=== PATIENT | male | born 1995 | race Caucasian/White ===

== ENCOUNTER 2024-08-11 12:43 | Outpatient (CLI) | payer BC, SELFPAY ==
--- NOTE | 2024-08-11 13:00 | CT_ITS ---
FINAL REPORT TECHNIQUE: Thin section axial images are obtained through the abdomen and pelvis after intravenous contrast. Reconstruction images were obtained from the axial data. Exam was performed using dose reduction techniques. CLINICAL HISTORY: kidney cancer history, checkup COMPARISON: No prior exams submitted for comparison. FINDINGS: LUNG BASES: Lung bases are clear. Heart size is normal. LIVER: Homogeneous. No focal lesion. GALLBLADDER/BILIARY SYSTEM: Gallbladder is present. Questionable small gallstones. No biliary dilatation. SPLEEN: Unremarkable. PANCREAS: Unremarkable. ADRENALS: Unremarkable. KIDNEYS/URETERS/BLADDER: Left kidney has likely been removed. Abnormal attenuation is seen in the left renal fossa which is likely postoperative. Right kidney is unremarkable. Unremarkable urinary bladder. GI TRACT: No small bowel obstruction or dilatation. Normal appendix. No acute colon abnormality. PELVIC ORGANS: Unremarkable for age. LYMPH NODES/RETROPERITONEUM/MESENTERY: Left periaortic lymph node measuring 13 mm seen on axial image 48. No additional lymphadenopathy is seen. No abdominal aortic aneurysm. ABDOMINAL WALL: The abdominal wall is intact. FREE FLUID: No ascites. BONES: No acute osseous abnormality. IMPRESSION: 13 mm left periaortic lymph node which could be reactive. Recommend comparison with prior imaging. Otherwise, no acute abnormality. Reviewed, Interpreted and Dictated by Mercedez Ross MD Transcribed by Nicole Wiggins Authenticated and . [facility] [place]
[2024-08-11 13:24] LABS: Blood Urea Nitrogen 19 mg/dl (9-20); Estimated Glomerular Filt Rate 65 ml/min (>60); GFR (African American) 78 ML/MIN (>60)
[2024-08-11] MEDS: IOPAMIDOL-370 (76%);100ML BOTTLE 75 ML IV (13:40)
[2024-08-11] MEDS: SODIUM CHLORIDE 0.9% 10ML SYR (RAD ONLY) 10 ML IV (13:40)
== END 2024-08-11 23:59 | disposition home or self-care (01) ==
LOC: RAD 12:44
PROVIDERS: PCP Family Medicine; Visit Provider Internal Medicine Medical Oncology
DX: R59.0 Localized enlarged lymph nodes (principal); Z85.528 Personal history of other malignant neoplasm of kidney
CPT/HCPCS: 36415; 74177; 82565; 84520; Q9967

== ENCOUNTER 2024-12-23 22:27 | Emergency (ER) | payer BC, SELFPAY ==
--- OUTSIDE RECORDS SUMMARY | 2024-07-07 13:00 | XMS_ITS ---
[facility] Organization [facility] Address [address] [facility] [address] [place] [id number] Care Team Providers Care Scrap Charger Name Role Phone Adelfo Haile Primary Care Provider Allergies No Known Allergies Results Component Value Reference Range Notes CBC Venipuncture (in house) Reviewed date:07/09/2024 03:17:52 PM Interpretation:Normal Performing Lab: Notes/Report: Normal wbc 8.9 3.5 - 10 lymph 32.2% 15 - 50 mid 5.8% 2 - 15 gran 62.0% 35 - 80 rbc 5.46 3.5 - 5.5 hgb 16.0 11.5 - 16.5 hct 47.1 35 - 55 mcv 86.4 75 - 100 mch 29.4 25 - 35 mchc 34.0 31 - 38 platlet 281 100 - 400 P-Comprehensive Metabolic Pa avni (CMP) Reviewed date:07/09/2024 03:17:52 PM Interpretation:Normal Performing Lab: Notes/Report: Test performed by [facility], [facility] [address] [place] [address] , [address], [place] [address] Francisco Tenorio MD, Shopper Insights Manager CLIA: [id number] Sodium 139 135-145 mmol/L Potassium 4.2 3.5-5.3 mmol/L Chloride 104 97-108 mmol/L CO2 24 22-32 mmol/L Glucose 86 65-99 mg/dL BUN 13 6-20 mg/dL Creatinine 1.27 0.70-1.30 mg/dL Calcium 9.5 8.6-10.4 mg/dL eGFR by Creatinine 78 >59 mL/min/1.73m2 Protein 7.0 6.0-8.3 g/dL Albumin 4.5 3.5-5.3 g/dL Alkaline Phosphatase 94 40-129 IU/L ALT (SGPT) 22 <5-55 IU/L AST (SGOT) 21 <5-46 IU/L Bilirubin, Total 0.6 <0.2-1.2 mg/dL A/G Ratio 1.8 1.1-2.5 P-Lipid Panel Reviewed date:07/09/2024 03:17:51 PM Interpretation:Normal Performing Lab: Notes/Report: Test performed by [facility], [facility] [address] [facility] , [place] [address] Francisco Tenorio MD, Shopper Insights Manager CLIA: [id number] Cholesterol 167 <200 mg/dL Triglycerides 95 <150 mg/dL HDL Cholesterol 42 >39 mg/dL Cholesterol / HDL Ratio 3.98 0.00-4.99 Ratio Non-HDL Cholesterol 125 <130 mg/dL LDL Cholesterol (Calculation) 106 <130 mg/dL LDL Cholesterol Levels* Less than 100 mg/dL Optimal 100 to 129 mg/dL Near Optimal/ Above Optimal 130 to 159 mg/dL Borderline High 160 to 189 mg/dL High 190 mg/dL and above Very High * Categories as recommended by the 2004 ATPIII guidelines LDL/HDL Ratio 2.5 <3.3 Ratio LDL Cholesterol Patient History Test Date: 07/07/2024 LDL Results: 106 Units: mg/dL % Change: - P-TSH reflex to FT4 Reviewed date:07/09/2024 03:17:51 PM Interpretation:Normal Performing Lab: Notes/Report: Test performed by [facility], [address] , [address], [place] [address] Francisco Tenorio MD, Shopper Insights Manager CLIA: [id number] TSH reflex to FT4 1.59 0.43-5.25 mU/L Reason For Referral Diagnosis 1 Hx of colon cancer, stage I (Z85.038) Diagnosis 2 History of kidney ca ncer (Z85.528) Referral Organization [facility] Referring Provider First Name Adelfo Referring Provider Last Name Mic Referring Provider Speciality Family Pra ctice Referred Provider John Lacey Referred Provider Specialty Hematology/O ncology General Notes Melani Obrien 2024 10:53:38 AM > faxed to Dr. Rodriguez's office, Melani Obrien 07/15/2024 09:23:24 AM > 07/22/2024 Referral Priority Routine REASON FOR VISIT to get established and needs referral to Design Analyst and oncologist Medications Medication SIG (Take, Route, Fr equency, Duration) Notes Start Date End Date Status Linzess 145 MCG 1 capsule at least 3 0 minutes before the first meal of the day on an empty stomach Orally Once a day Active Wegovy 1.7 MG/0.75ML 0.75 mL Subcutaneous Active clonazePAM 0.5 MG 1 tablet Orally Once a day Active FLUoxetine HCl 40 MG 1 capsule Orally Once a day Active Problems Problem Type SNOMED Code ICD Code Onset Dates Problem Status W/U Status Risk Notes Problem Mixed anxiety and depressive disorder (921425028) Depression with anxiety (F41.8) Active confirmed Problem Irritable bowel syndrome characterized by constipation (307485023) Irritable bowel syndrome with constipation (K58.1) Active confirmed Problem Morbid obesity (403786663) Morbid obesity (E66.01) Active confirmed Problem History of malignant neoplasm of colon (445350094) Hx of colon cancer, stage I (Z85.038) Active confirmed Problem Personal history of primary malignant neoplasm of kidney (587001599) History of kidney cancer (Z85.528) Active confirmed Vital Signs Weight 280 lbs 07/07/2024 Blood pressure systolic 120 mm Hg 03/31/20 25 Blood pressure diastolic 70 mm Hg 025 Heart Rate 111 /min 07/07/2024 Height 69 in 07/07/2024 BMI 41.34 kg/m2 07/07/2024 Encounters Encounter Location Date Provider Diagnosis [facility] [address] [place] [id number] 07/07/2024 Adelfo Haile Depression with anxi ety F41.8 ; Irritable bowel syndrome with constipation K58.1 ; Morbid obesity E66.01 ; Hx of colon cancer, stage I Z85.038 and History of kidney cancer Z85.528 Assessments Encounter Date Diagnosis (ICD Code) Assessment Notes Treatment Notes Treatment Clinical Notes Section Notes 07/07/2024 Depression with anxiety (ICD-10 - F41.8) 07/07/2024 Irritable bowel syndrome with constipation (ICD-10 - K58.1) 07/07/2024 Morbid obesity (ICD-10 - E66.01) 07/07/2024 Hx of colon cancer, stage I (ICD-10 - Z85.038) 07/07/2024 History of kidney cancer (ICD-10 - Z85.528) Plan Of Treatment Medication Medication Name Sig Start Date Stop Date Notes Linzess 145 MCG 1 capsule at least 3 0 minutes before the first meal of the day on an empty stomach Orally Once a day Wegovy 1.7 MG/0.75ML 0.75 mL Subcutaneous clonazePAM 0.5 MG 1 tablet Orally Once a day FLUoxetine HCl 40 MG 1 capsule Orally Once a day Referrals Referral Date Details 07/07/2024 07/07/2024, John Lacey Next Appt Details Follow Up: 6 Months, Reason: Provider Name:Adelfo Sanders ry, 12/24/2024 04:00:00 PM, [address] [facility] [address] [facility], [address], [place], [phone], Progress Notes * John BERGERDOB:1995 (29 yo M)Acc No.[id number]:07/07/2024 Progress Notes Patient: John CURRY Provider: Kaleb Haile M.D. :1995 A ge:28 Y S ex:Male Date:07/07/2024 Address:[address] [place] [address] , [address], [id number] Subjective: * Chief Complaints: * 1 . to get established and needs referral to Design Analyst and oncologist. * HPI: H PI: 28 year old male presents with c/o Patient is here today for?Pt here to establish care, pt was previously seen by Dr. Alvarez Dowell. Pt needs referral to Nephrology and GI due to history colon and kidney cancer. Pt states he was advised by previous PCP to see specialists annually. * ROS: D ERMATOLOGY: no R paula. n o H katerine. G ASTROENTEROLOGY: no N ausea. n o V omiting. U ROLOGY: no D ifficulty urinating. n o B lood in urine. * Medical History: K idney Cancer, small/clear cell carcinoma, stage 1, Dx Feb 2023, colon cancer - Neuroendocrine cancer, stage 1, Dx: Dec 2023, Depression, Anxiety disorder, Irritable Bowel Syndrome. * Surgical History: N ephrectomy 04/19/2023, Colonoscopy 12/2023. * Hospitalization/Major Diagno stic Procedure: D enies Past Hospitalization. * Family History: F ather: , diagnosed with Hypertension, Heart Disease, Cancer. M other: diagnosed with Diabetes, Cancer. P aternal Grand Father: diagnosed with Cancer. M aternal Grand Father: diagnosed with Cancer. M aternal Grand Mother: diagnosed with Diabetes. 2 brother(s) , 1 sister(s) . 1 son(s) , 1 daughter(s) . . * Social History: C URRENT TOBACCO USE: No . C affeine: yes, frequency: once daily. Alcohol: yes, Socially. * Medications: T aking FLUoxetine HCl 40 MG Capsule 1 capsule Orally Once a day , Taking clonazePAM 0.5 MG Tablet 1 tablet Orally Once a day , Taking Wegovy 1.7 MG/0.75ML Solution Auto-injector 0.75 mL Subcutaneous , Taking Linzess 145 MCG Capsule 1 capsule at least 30 minutes before the first meal of the day on an empty stomach Orally Once a day , Medication List reviewed and reconciled with the patient * Allergies: N .K.D.A. Objective: * Vitals: W t: 280, Temp: 98.0, BP: 120/70, HR: 111, Nurse: curtis, Ht: 69, BMI:41.34. * Examination: G eneral Examination: General Appearance: N AD. H EENT: u nremarkable.?Heart: R SR. L ungs: c lear to auscultation. N eurologic Exam: I ntact, gait normal. P eripheral pulses: n ormal (2+) bilaterally. E xtremities: n o leg edema.? Assessment: * Assessment: 1. D epression with anxiety - F41.8 (Primary) 2 . I rritable bowel syndrome with constipation - K58.1 3 . M orbid obesity - E66.01 4 . H x of colon cancer, stage I - Z85.038 5 . H istory of kidney cancer - Z85.528? Plan: * Treatment: 2. I rritable bowel syndrome with constipation Continue Linzess Capsule, 145 MCG, 1 capsule at least 30 minutes before the first meal of the day on an empty stomach, Orally, Once a day. 3. M orbid obesity Continue Wegovy Solution Auto-injector, 1.7 MG/0.75ML, 0.75 mL, Subcutaneous. L AB: P-Comprehensive Metabolic Panel (CMP) (Collection Date & Time - 07/07/2024 05:00 PM) N ormal Value Reference Range A /G Ratio 1.8 1.1-2.5 - * A lbumin 4.5 3.5-5.3 - g/dL * A lkaline Phosphatase 94 40-129 - IU/L * A LT (SGPT) 22 <5-55 - IU/L * A ST (SGOT) 21 <5-46 - IU/L * B ilirubin, Total 0.6 <0.2-1.2 - mg/dL * B UN 13 6-20 - mg/dL * C alcium 9.5 8.6-10.4 - mg/dL * C hloride 104 97-108 - mmol/L * C O2 24 22-32 - mmol/L * C reatinine 1.27 0.70-1.30 - mg/dL * G lucose 86 65-99 - mg/dL * P otassium 4.2 3.5-5.3 - mmol/L * S odium 139 135-145 - mmol/L * P rotein 7.0 6.0-8.3 - g/dL * e GFR by Creatinine 78 >59 - mL/min/1.73m2 * Khadijah Alvares 07/09/2024 03:17:1 4 PM > Left detailed message on pt's identified voicemail ?LAB: P-Lipid Panel (Collection Date & Time - 07/07/2024 05:00 PM)?Normal* Value Reference Range C holesterol / HDL Ratio 3.98 0.00-4.99 - Ratio * C holesterol 167 <200 - mg/dL * H DL Cholesterol 42 >39 - mg/dL * L DL Cholesterol (Calculation) 106 <130 - mg/d L * L DL/HDL Ratio 2.5 <3.3 - Ratio * N on-HDL Cholesterol 125 <130 - mg/dL * T riglycerides 95 <150 - mg/dL * Khadijah Alvares 07/09/2024 03:17:1 4 PM > Left detailed message on pt's identified voicemail ?LAB: P-TSH reflex to FT4 (Collection Date & Time - 07/07/2024 05:00 PM)? Normal* Value Reference Range T SH reflex to FT4 1.59 0.43-5.25 - mU/L * Khadijah Alvares 07/09/2024 03:17:1 4 PM > Left detailed message on pt's identified voicemail ?LAB: CBC Venipuncture (in house) (Collection Date & Time - 07/07/2024)? Normal* Value Reference Range w bc 8.9 3.5 - 10 * l ymph 32.2% 15 - 50 * m id 5.8% 2 - 15 * g ran 62.0% 35 - 80 * r bc 5.46 3.5 - 5.5 * h gb 16.0 11.5 - 16.5 * h ct 47.1 35 - 55 * m cv 86.4 75 - 100 * m ch 29.4 25 - 35 * m chc 34.0 31 - 38 * p latlet 281 100 - 400 * Khadijah Alvares 07/07/2024 06:13: 43 PM > Khadijah Alvares 07/09/2024 03:17:14 PM > Left detailed message on pt's identified voicemail 4.?Hx of colon cancer, stage I?LAB: CBC Venipuncture (in house) (Collection Date & Time - 07/07/2024)? Normal* Value Reference Range w bc 8.9 3.5 - 10 * l ymph 32.2% 15 - 50 * m id 5.8% 2 - 15 * g ran 62.0% 35 - 80 * r bc 5.46 3.5 - 5.5 * h gb 16.0 11.5 - 16.5 * h ct 47.1 35 - 55 * m cv 86.4 75 - 100 * m ch 29.4 25 - 35 * m chc 34.0 31 - 38 * p latlet 281 100 - 400 * Khadijah Alvares 07/07/2024 06:13: 43 PM > Khadijah Alvares 07/09/2024 03:17:14 PM > Left detailed message on pt's identified voicemail ? Referral To:John Lacey??Hematology/Oncology ?Reason: 5.?History of kidney cancer?LAB: P-Comprehensive Metabolic Panel (CMP) (Collection Date & Time - 07/07/2024 05:00 PM)?Normal* Value Reference Range A /G Ratio 1.8 1.1-2.5 - * A lbumin 4.5 3.5-5.3 - g/dL * A lkaline Phosphatase 94 40-129 - IU/L * A LT (SGPT) 22 <5-55 - IU/L * A ST (SGOT) 21 <5-46 - IU/L * B ilirubin, Total 0.6 <0.2-1.2 - mg/dL * B UN 13 6-20 - mg/dL * C alcium 9.5 8.6-10.4 - mg/dL * C hloride 104 97-108 - mmol/L * C O2 24 22-32 - mmol/L * C reatinine 1.27 0.70-1.30 - mg/dL * G lucose 86 65-99 - mg/dL * P otassium 4.2 3.5-5.3 - mmol/L * S odium 139 135-145 - mmol/L * P rotein 7.0 6.0-8.3 - g/dL * e GFR by Creatinine 78 >59 - mL/min/1.73m2 * Rikki Alvaresira 07/09/2024 03:17:1 4 PM > Left detailed message on pt's identified voicemail ?LAB: CBC Venipuncture (in house) (Collection Date & Time - 07/07/2024)? Normal* Value Reference Range w bc 8.9 3.5 - 10 * l ymph 32.2% 15 - 50 * m id 5.8% 2 - 15 * g ran 62.0% 35 - 80 * r bc 5.46 3.5 - 5.5 * h gb 16.0 11.5 - 16.5 * h ct 47.1 35 - 55 * m cv 86.4 75 - 100 * m ch 29.4 25 - 35 * m chc 34.0 31 - 38 * p latlet 281 100 - 400 * GiorgioRikkiKhadijah 07/07/2024 06:13: 43 PM > King Khadijah 07/09/2024 03:17:14 PM > Left detailed message on pt's identified voicemail ? Referral To:John Lacey??Hematology/Oncology ?Reason: * Procedure Codes: 8 5025 CBC WITH AUTO DIFF, [address] VENIPUNCT, ROUTINE*, 3074F SYST BP LT 130 MM HG, 3078F DIAST BP < 80 MM HG * Follow Up: 6 Months * Images: Billing Information: * Visit Code: 41863 Office Visit, New Pt., Level 4. * Procedure Codes: 62654 CBC WITH AUTO DIFF. 50697 VENIPUNCT, ROUTINE*. 3074F SYST BP LT 130 MM HG. 3078F DIAST BP < 80 MM HG. * Electronic signature of Ethel Haile MD on 12/23/2024 at 10:39 PM EDT Sign off status: Pending * Provider: Kaleb Haile M.D. Date: 0 07/07/2024 Generated for Kiara ng/Nancy/eTransmitting on: 0 12/23/2024 10:39 PM EDT History and Physical Notes * HPI (History of Present Illness) Category Sub-Category Detail Notes Category Not es HPI Patient is here today for Pt her e to establish care, pt was previously seen by Dr. Alvarez Dowell. Pt needs referral to Nephrology and GI due to history colon and kidney cancer. Pt states he was advised by previous PCP to see specialists annually Examination Category Sub-Category Detail Notes Category Not es General Examination HEENT: unremarkable Heart: RSR Lungs: clear to auscultatio n Extremities: no leg edema General Appearance: NAD Neurologic Exam: Intact, gait normal Peripheral pulses: normal (2+) bilatera lly Consultation Request Notes Referral Date Referring Provider Referred Provider Not es 07/07/2024 Adelfo Haile Michael
--- OUTSIDE RECORDS SUMMARY | 2024-10-01 06:30 | XMS_ITS ---
Author Organization Rd Address [address] [place] [address] [place] [phone] Care Team Providers Care Software Reliability Engineer Name Role Phone Adelfo Haile Primary Care Provider Allergies No Known Allergies REASON FOR VISIT Check Up w/ Refills Medications Medication SIG (Take, Route, Fr equency, Duration) Notes Start Date End Date Status FLUoxetine HCl 40 MG 1 capsule Orally Once a day Active clonazePAM 0.5 MG 1 tablet Orally Once a day Active Wegovy 1.7 MG/0.75ML 0.75 mL Subcutaneous Active Linzess 145 MCG 1 capsule at least 3 0 minutes before the first meal of the day on an empty stomach Orally Once a day Active hydrOXYzine HCl 25 MG 1 tablet as needed Orally twice a day; Duration: 30 days 09/26/2024 A ctive Encounters Encounter Location Date Provider Diagnosis Rd [address] [place] [address] [place] [phone] 10/01/2024 Adelfo Haile Plan Of Treatment Next Appt Details Provider Name:Adelfo Sanders ry, 12/24/2024 04:00:00 PM, [address] [place] [address], [address], [place], [phone], Progress Notes * John BERGERDOB:1995 (29 yo M)Acc No.[id number]:10/01/2024 Progress Notes Patient: John CURRY Provider: Kaleb Haile M.D. :1995 A ge:28 Y S ex:Male Date:10/01/2024 Address:[address] [place] [address] , [address], [id number] Subjective: * Chief Complaints: * 1 . Check Up w/ Refills. * HPI: P sychology: 28 year old male presents with c/o depression P t here to f/u on depression with anxiety. * ROS: D ERMATOLOGY: no R paula. [...] Family History: F ather: , diagnosed with Cancer, Hypertension, Heart Disease. M other: diagnosed with Cancer, Diabetes. P aternal Grand Father: diagnosed with Cancer. [...] empty stomach Orally Once a day , Taking hydrOXYzine HCl 25 MG Tablet 1 tablet as needed Orally twice a day , Medication List reviewed and reconciled with the patient * Allergies: N .K.D.A. Objective: * Vitals: Assessment: Plan: * Treatment: * Images: Billing Information: * Visit Code: * Procedure Codes: * Electronic signature of Ethel Haile MD on 12/23/2024 at 10:38 PM EDT Sign off status: Pending * Provider: Kaleb Haile M.D. Date: 0 10/01/2024 Generated for Printi ng/Nancy/Aislinnsmitting on: 0 12/23/2024 10:38 PM EDT History and Physical Notes * HPI (History of Present Illness) Category Sub-Category Detail Notes Category Not es Psychology depression Pt here to f/u on depression with anxiety
--- OUTSIDE RECORDS SUMMARY | 2024-11-07 07:45 | XMS_ITS ---
Author Organization Rd Address [address] [facility] [address] [place] [id number] Care Team Providers Care Tuber Machine Cutter Name Role Phone Adelfo Haile Primary Care Provider Allergies No Known Allergies REASON FOR VISIT refills Medications Medication SIG (Take, Route, Frequency, Duration) Notes Start Date End Date Status QUEtiapine Fumarate 50 MG 1 tablet at be dtime Orally Once a day; Duration: 30 days 11/07/2024 Active clonazePAM 0.5 MG 1 tablet Orally Once a day As needed 11/07/2024 Active Linzess 145 MCG 1 capsule at least 3 0 minutes before the first meal of the day on an empty stomach Orally Once a day; Duration: 90 days Active FLUoxetine HCl 40 MG 1 capsule Orally On ce a day; Duration: 90 days Active Wegovy 2.4 MG/0.75ML 0.75 mL Subcutaneous weekly 0 11/07/2024 Active Problems Problem Type SNOMED Code ICD Code Onset Dates Problem Status W/U Status Risk Notes Problem Adjustment disorder with mixed anxiety and depressed mood (116099052) Adjustment disorder with mixed anxiety and depressed mood (F43.23) Active confirmed Vital Signs Weight 277 lbs 11/07/2024 Blood pressure systolic 122 mm Hg 11/08/19 25 Blood pressure diastolic 78 mm Hg 025 Heart Rate 94 /min 11/07/2024 Height 69 in 11/07/2024 BMI 40.9 kg/m2 11/07/2024 Encounters Encounter Location Date Provider Diagnosis Rd [address] [facility] [address] [place] [phone] 11/07/2024 Adelfo Haile Depression with anxi ety F41.8 ; Adjustment disorder with mixed anxiety and depressed mood F43.23 ; Irritable bowel syndrome with constipation K58.1 and Morbid obesity E66.01 Assessments Encounter Date Diagnosis (ICD Code) Assessment Notes Treatment Notes Treatment Clinical Notes Section Notes 11/07/2024 Depression with anxiety (ICD-10 - F41.8) 11/07/2024 Adjustment disorder with mixed anxiety and depressed mood (ICD-10 - F43.23) 11/07/2024 Irritable bowel syndrome with constipation (ICD-10 - K58.1) 11/07/2024 Morbid obesity (ICD-10 - E66.01) Plan Of Treatment Medication Medication Name Sig Start Date Stop Date Notes QUEtiapine Fumarate 50 MG 1 tablet at be dtime Orally Once a day; Duration: 30 days 11/07/2024 clonazePAM 0.5 MG 1 tablet Orally Once a day 11/07/2024 Linzess 145 MCG 1 capsule at least 3 0 minutes before the first meal of the day on an empty stomach Orally Once a day; Duration: 90 days FLUoxetine HCl 40 MG 1 capsule Orally On ce a day; Duration: 90 days Wegovy 2.4 MG/0.75ML 0.75 mL Subcutaneous weekly Wegovy 1.7 MG/0.75ML 0.75 mL Subcutaneous Next Appt Details Follow Up: 3 or 4 Weeks, Cherelle son: Provider Name:Adelfo Sanders ry, 12/24/2024 04:00:00 PM, [address] [place] [facility] [address], [address], [place], [phone], Progress Notes * John BERGERDOB:1995 (29 yo M)Acc No.[id number]:11/07/2024 Progress Notes Patient: John CURRY Provider: Kaleb Haile M.D. :1995 A ge:29 Y S ex:Male Date:11/07/2024 Address:[address] [place] [address] , [address], [place], [place] Subjective: * Chief Complaints: * 1 . Refills. * HPI: P sychology: 29 year old male presents with c/o depression P t here to f/u on depression with anxiety. Pt states he has felt manic for a couple month. Pt states his mother and brother both since his last office visit on 07/07/2024. Pt states some days it takes everything in him to just make it through the day. Pt states he was taking Clonazepam 0.5 mg PRN and does need rf on it today. * ROS: D ERMATOLOGY: no R paula. [...] Family History: F ather: , diagnosed with Heart Disease, Cancer, Hypertension. M other: diagnosed with Cancer, Diabetes. P [...] empty stomach Orally Once a day , Discontinued hydrOXYzine HCl 25 MG Tablet 1 tablet as needed Orally twice a day , Medication List reviewed and reconciled with the patient * Allergies: N .K.D.A. Objective: * Vitals: W t: 277, Temp: 97.7, BP: 122/78, HR: 94, Nurse: curtis, Ht: 69, BMI:40.9. * Examination: P sychology: General Appearance: N AD. G rooming : a dequate.?Eye contact : n ormal. M ood : p sandy. Assessment: * Assessment: 1. D epression with anxiety - F41.8 (Primary) 2 . A djustment disorder with mixed anxiety and depressed mood - F43.23 3 . I rritable bowel syndrome with constipation - K58.1 4 . M orbid obesity - E66.01 Plan: * Treatment: 2. A djustment disorder with mixed anxiety and depressed mood Start QUEtiapine Fumarate Tablet, 50 MG, 1 tablet at bedtime, Orally, Once a day, 30 days, 30, Refills 0. 3. I rritable bowel syndrome with constipation Refill Linzess Capsule, 145 MCG, 1 capsule at least 30 minutes before the first meal of the day on an empty stomach, Orally, Once a day, 90 days, 90, Refills 1. 4. M orbid obesity Stop Wegovy Solution Auto-injector, 1.7 MG/0.75ML, 0.75 mL, Subcutaneous; S tart Wegovy Solution Auto-injector, 2.4 MG/0.75ML, 0.75 mL, Subcutaneous, weekly, 2 mL, Refills 5. * Procedure Codes: 1 036F TOBACCO NON-USER, 3074F SYST BP LT 130 MM HG, 3078F DIAST BP < 80 MM HG * Follow Up: 3 or 4 Weeks * Images: Billing Information: * Visit Code: 90555 Office Visit, Est Pt., Level 4. * Procedure Codes: 1036F TOBACCO NON-USER. 3074F SYST BP LT 130 MM HG. 3078F DIAST BP < 80 MM HG. * Electronic signature of Ethel Haile MD on 12/23/2024 at 10:39 PM EDT Sign off status: Pending * Provider: Kaleb Haile M.D. Date: 0 11/07/2024 Generated for Kiara oakes/Nancy/Germanitting on: 0 12/23/2024 10:39 PM EDT History and Physical Notes * HPI (History of Present Illness) Category Sub-Category Detail Notes Category Not es Psychology depression Pt here to f/u o n depression with anxiety. Pt states he has felt manic for a couple month. Pt states his mother and brother both since his last office visit on 07/07/2024. Pt states some days it takes everything in him to just make it through the day. Pt states he was taking Clonazepam 0.5 mg PRN and does need rf on it today Examination Category Sub-Category Detail Notes Category Not es Psychology General Appearance: NAD Grooming : adequate Eye contact : normal Mood : pleasant
--- OUTSIDE RECORDS SUMMARY | 2024-11-28 07:45 | XMS_ITS ---
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 Name Role Phone Adelfo Haile Primary Care Provider Allergies No Known Allergies REASON FOR VISIT 3 week f/u Encounters Encounter Location Date Provider Diagnosis Rd [address] [facility] [address] [facility] [address] [place] [id number] 11/28/2024 Adelfo Haile Plan Of Treatment Next Appt Details Provider Name:Adelfo Sanders ry, 12/24/2024 04:00:00 PM, [address] [facility] [address] [facility], [address], [place], [id number], Progress Notes * AB JohnDOB:1995 (29 yo M)Acc No.[id number]:11/28/2024 Progress Notes Patient: John CURRY Provider: Kaleb Haile M.D. :1995 A ge:29 Y S ex:Male Date:11/28/2024 Address:[address] [place] [address] , [address], [id number] Subjective: * Chief Complaints: * 1 . 3 week f/u. * HPI: P sychology: depression P t. here for 3 week follow up on depression with Anxiety. Pt. started on Quetiapine 50MG. on 11/07. . * ROS: D ERMATOLOGY: no R paula. n o H katerine. G ASTROENTEROLOGY: no N ausea. n o V omiting. U ROLOGY: no D ifficulty urinating. n o B lood in urine. * Medical History: Talon fraire Cancer, small/clear cell carcinoma, stage 1, Dx Feb 2023, colon cancer - Neuroendocrine cancer, stage 1, Dx: Dec 2023, Depression, Anxiety disorder, Irritable Bowel Syndrome. * Surgical History: N ephrectomy 04/19/2023, Colonoscopy 12/2023. * Hospitalization/Major Diagno stic Procedure: D enies Past Hospitalization. * Family History: F ather: , diagnosed with Cancer, Hypertension, Heart Disease. M other: diagnosed with Diabetes, Cancer. P aternal Grand Father: diagnosed with Cancer. M aternal Grand Father: diagnosed with Cancer. M aternal Grand Mother: diagnosed with Diabetes. 2 brother(s) , 1 sister(s) . 1 son(s) , 1 daughter(s) . . * Social History: C URRENT TOBACCO USE: No . C affeine: yes, frequency: once daily. Alcohol: yes, Socially. * Allergies: N .K.D.A. Objective: * Vitals: Assessment: Plan: * Treatment: * Images: Billing Information: * Visit Code: * Procedure Codes: * Electronic signature of Ethel Haile MD on 12/23/2024 at 10:39 PM EDT Sign off status: Pending * Provider: Kaleb Haile M.D. Date: 0 11/28/2024 Generated for Kiara oakes/Nancy/Micaela on: 0 12/23/2024 10:39 PM EDT History and Physical Notes * HPI (History of Present Illness) Category Sub-Category Detail Notes Category Not es Psychology depression Pt. here for 3 w poarch follow up on depression with Anxiety. Pt. started on Quetiapine 50MG. on 11/07.
--- NOTE | 2024-12-23 22:39 | ED_ITS ---
Discharge Plan Disposition Patient Disposition: Home, Self-Care Condition: Good Prescriptions Prescriptions: New ondansetron 4 mg tablet,disintegrating 4 mg PO DAILY 4 Days Qty: 4 0RF No Action Linzess 145 mcg capsule PO Wegovy 1.7 mg/0.75 mL pen injector SQ Patient Comments: INJECT 1.7MG UNDER THE SKIN EVERY WEEK ON THE SAME DAY EACH WEEK Wegovy 1 mg/0.5 mL pen injector SQ fluoxetine 40 mg capsule PO Patient Comments: TAKE 1 CAPSULE BY MOUTH EVERY DAY Referrals Follow up/Referrals: Provider,Referral, [Primary Care Provider, Medical] - See instructions Clinical Impressions Clinical Impression: Vomiting Instructions Patient Instructions: DI for Diarrhea and Traveler's Diarrhea -- Adult, DI for Diarrhea and Traveler's Diarrhea -- Child, DI for Nausea -- Adult, DI for Nausea -- Child Print Language Print Language: Tajik Discharge ED Provider: Malinda Costa General Adult HPI General Chief complaint: Nausea/Vomiting/Diarrhea Stated complaint: vomiting,upset stomach , Dehydration Time Seen by Provider: 12/23/24 22:39 History of Present Illness HPI narrative: Patient is a 29 y/o M with a PMH of renal cancer s/p nephrectomy who presented with n/v. Patient episodes of vomiting this morning as well as nausea. Patient denies any diarrhea or abdominal pain. Patient denies any fevers. Patient denies any chest pain or shortness of breath. Patient states that he is concerned for dehydration given he has 1 kidney. Patient states that he has not been sick contacts. Patient just started his wegovy again after a 6 week break. Related Data Home Medications ?Medication ?Instructions ?Recorded ?Confirmed fluoxetine 40 mg capsule mg PO 08/05/24 08/05/24 linaclotide 145 mcg capsule mcg PO 08/05/24 08/05/24 (Linzess) semaglutide (weight loss) 1 mg/0.5 mg SQ 08/05/24 04/ 9/25 mL subcutaneous pen injector (Wegovy) semaglutide (weight loss) 1.7 mg SQ 08/05/24 08/05/24 mg/0.75 mL subcutaneous pen injector (Wegovy) Previous Rx's ?Medication ?Instructions ?Recorded ondansetron 4 mg disintegrating 4 mg PO DAILY 4 days # 4 tabs 12/24/24 tablet Allergies Allergy/AdvReac Type Severity Reaction Status Date / Time No Known Allergies Allergy Verified 08/05/24 11:49 [facility] Disclaimer: The information contained in this section may have been updated after the patient was seen, as this information can be updated by other users. Medical History (Updated 12/24/24 @ 00:01 by Malinda Costa DO) History of kidney cancer History of colon cancer IBS (irritable colon syndrome) Family History (Updated 08/05/24 @ 11:53 by SAW Lindsey) Mother Cancer Father Cancer Grandfather Cancer Social History (Updated 08/05/24 @ 11:53 by SAW Lindsey) Smoking Status: Never smoker alcohol intake: current alcohol intake frequency: holidays/special occasions only current occupational status: employed Travel in the last 8 weeks?: Inside the [place] Have you lived/traveled outside US in past 30 days?: No Contact w/someone who lives/traveled outside US past 30 days?: No Exposure to someone with infectious disease in past 14 days?: No Do you have a fever (greater than 100.4 F or 38 C)?: No Have you tested positive for COVID-19?: No Exposed to someone with COVID-19 in past 14 days?: No Do you have a sore throat?: No Do you have a cough?: No Do you have any weakness?: No Do you have any diarrhea?: No Are you experiencing any unusual bleeding?: No Do you have any muscle aches/pain?: No Do you have any abdominal pain?: No Are you experiencing loss of taste or smell?: No ROS Obtained: Yes All systems reviewed & no additional complaints except as documented and Yes Systems reviewed as appropriate & no additional complaints except as documented Physical Exam General General appearance: alert and in no apparent distress Head Head exam: atraumatic, normocephalic and normal inspection Eye Eye exam: Present normal appearance, PERRL and EOMI; Absent scleral icterus ENT ENT exam: Present normal exam and normal external ear exam Neck Neck exam: Present normal inspection and full ROM Chest Chest inspection: Present normal inspection and symmetric chest wall rise Respiratory Respiratory exam: Present normal lung sounds bilaterally; Absent respiratory distress or wheezes Cardiovascular Cardiovascular exam: Present regular rate, normal rhythm and normal heart sounds Abdominal Exam Abdominal exam: Present soft and distention; Absent tenderness, guarding or rebound Extremities Exam Extremities exam: Present normal inspection and full ROM Back Exam Back exam: Present normal inspection and full ROM Neurological Exam Neurological exam: Present alert and oriented X3 Psychiatric Psychiatric exam: Present normal affect and normal mood Skin Skin exam: Present warm and dry Medical Decision Making Medical Records Screening: Per USPSTF and CDC recommendations, given the prevalence of disease in our region, it is our hospital?s policy to screen for HIV and viral Hepatitis for all patients aged 18 and over and those with ongoing risk factors. Nick Inquiry Pt receiving controlled substance: No Vital Signs: 12/23/24 22:40 Temperature 98.3 F Temperature Source Oral Pulse Rate [Left] 99 H Respiratory Rate 19 Blood Pressure [Left Arm] 109/79 L Blood Pressure Mean [Left Arm] 89 Blood Pressure Source [Left Arm] Automatic Cuff Blood Pressure Position [Left Arm] Sitting 02 Sat by Pulse Oximetry 96 Oxygen Delivery Method Room Air Lab Data Lab results reviewed: Yes I reviewed the patient's lab results. Lab Results 12/23/24 22:45: WBC 11.6 H, RBC 5.58, Hgb 16.4, Hct 47.8, MCV 85.7, MCH 29.4, MCHC 34.3, RDW 13.0, Plt Count 281, MPV 9.2, Neut % (Auto) 63.7, Lymph % (Auto) 27.2, [place] % (Auto) 7.0, Eos % (Auto) 1.4, Baso % (Auto) 0.4, Neut # (Auto) 7.4, Lymph # (Auto) 3.2, [place] # (Auto) 0.8, Eos # (Auto) 0.2, Baso # (Auto) 0.1, Sodium 138, Potassium 3.9, Chloride 104, Carbon Dioxide 24, Anion Gap 13.9, BUN 19, Creatinine 1.10, Estimated Creat Clear 94, Estimated GFR 78, Est GFR ( Amer) 94, Glucose 95, Calcium 9.3, Total Bilirubin 1.3, AST 42, ALT 50, Alkaline Phosphatase 66, Total Protein 8.1, Albumin 4.7, Globulin 3.4 H, Albumin/Globulin Ratio 1.4, Lipase 134, HCV Ab YOJANA w/Rflx PCR Qn Negative, HIV Ag/Ab Combo Qual Negative 12/23/24 22:45 12/23/24 22:45 Orders (Tests/Meds): ED MEDICATIONS Discontinued Medications Generic Name Dose Route Start Last Admin Trade Name Melissa PRN Reason Stop Dose Admin Lactated Ringer's 1,000 mls @ 999 mls/hr 12/23/24 22:53 12/23/24 22:55 Lactated Ringer's 1000 Ml Bag IV 12/23/24 23:53 999 mls/hr .Q1H1M ONE Administration Ondansetron HCl 4 mg 12/23/24 22:46 12/23/24 22:48 Ondansetron 4mg/2ml Vial IV 12/23/24 22:47 4 mg ONCE ONE Administration ORDERS Category Date Time Status Complete Blood Count Auto Diff Stat Lab 12/23/24 22:45 Completed Comprehensive Metabolic Panel Stat Lab 12/23/24 22:45 Completed HIV Combo Stat Lab 12/23/24 22:45 Completed Hepatitis C Ab Qual. W/ RFX Stat Lab 12/23/24 22:45 Completed Lipase Stat Lab 12/23/24 22:45 Completed Medical Decision Narrative: Patient is an otherwise healthy 29-year-old female with history of renal cell cancer status post nephrectomy who presented to the emergency department with nausea vomiting. On arrival, patient was hemodynamically stable with unremarkable vital signs. Differential includes but not limited to: Dehydration, electrolyte abnormalities, pancreatitis, gastroenteritis viral syndrome, amongst others. Labs were obtained which were reviewed and interpreted by myself: CBC showed no leukocytosis, CMP was unremarkable. Lipase was normal. Patient was given IV Zofran and IV fluids and patient was able to tolerate p.o. intake in the emergency department without difficulties. Patient was sent with a prescription for Zofran and return precautions were discussed the patient was discharged home in stable condition. Critical Care Critical Care Time Critical Care Time: No
--- OUTSIDE RECORDS SUMMARY | 2024-12-23 22:39 | XMS_ITS | Patient Health Record ---
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 Name Role Phone Adelfo Haile Primary Care [...] Interpretation:Normal Performing Lab: Notes/Report: Test performed by [facility], [place] [address] [place] [address] , [address], [place] [address] Francisco Tenorio MD, Car [place] CLIA: [id number] Sodium 139 135-145 mmol/L Potassium 4.2 3.5-5.3 [...] Interpretation:Normal Performing Lab: Notes/Report: Test performed by [facility], [address] , [facility], [place] [address] Francisco Tenorio MD, Car [place] CLIA: [id number] Cholesterol 167 <200 mg/dL Triglycerides 95 <150 [...] Interpretation:Normal Performing Lab: Notes/Report: Test performed by [facility], [place] [address] [place] [address] , [address], [place] [address] Francisco Tenorio MD, Car [place] CLIA: [id number] TSH reflex to FT4 1.59 0.43-5.25 mU/L Reason For Referral Diagnosis 1 Hx of colon cancer, stage I (Z85.038) Diagnosis 2 History of kidney ca ncer (Z85.528) Referral Organization Rd Referring Provider First Name Adelfo Referring Provider Last Name Mic Referring Provider Speciality [facility] gregorioice Referred Provider John Lacey Referred Provider Specialty Hematology/O ncology General Notes Melani Obrien 2024 10:53:38 AM > faxed to Dr. Rodriguez's office, Melani Obrien 07/15/2024 09:23:24 AM > 07/22/2024 Referral Priority Routine Medications Medication SIG (Take, Route, Frequency, Duration) Notes Start Date End Date Status QUEtiapine Fumarate 50 MG 1 tablet at be dtime Orally Once a day; Duration: 30 days 11/07/2024 Active clonazePAM 0.5 MG 1 tablet Orally Once a day As needed 11/07/2024 Active Wegovy 2.4 MG/0.75ML 0.75 mL Subcutaneous weekly 0 11/07/2024 Active Linzess 145 MCG 1 capsule at least 3 0 minutes before the first meal of the day on an empty stomach Orally Once a day; Duration: 90 days Active FLUoxetine HCl 40 MG 1 capsule Orally On ce a day; Duration: 90 days Active Problems Problem Type SNOMED Code ICD Code Onset Dates Problem Status W/U Status Risk Notes Problem Morbid obesity (532674545) Morbid obesity (E66.01) Active confirmed Problem Mixed anxiety and depressive disorder (573423881) Depression with anxiety (F41.8) Active confirmed Problem Adjustment disorder with mixed anxiety and depressed mood (537246240) Adjustment disorder with mixed anxiety and depressed mood (F43.23) Active confirmed Problem History of malignant neoplasm of colon (405273883) Hx of colon cancer, stage I (Z85.038) Active confirmed Problem Irritable bowel syndrome characterized by constipation (948752803) Irritable bowel syndrome with constipation (K58.1) Active confirmed Problem Personal history of primary malignant neoplasm of kidney (481141907) History of kidney cancer (Z85.528) Active confirmed Vital Signs Heart Rate 94 /min 11/07/2024 Blood pressure diastolic 78 mm Hg 11/07/2024 Height 69 in 11/07/2024 Blood pressure systolic 122 mm Hg 11/07/2024 Weight 277 lbs 11/07/2024 BMI 40.9 kg/m2 11/07/2024 Encounters Encounter Location Date Provider Diagnosis [facility] [address] [facility] [address] [place], [place] [id number] 07/07/2024 Adelfo Shepherd Depression with anxi ety F41.8 ; Irritable bowel syndrome with constipation K58.1 ; Morbid obesity E66.01 ; Hx of colon cancer, stage I Z85.038 and History of kidney cancer Z85.528 [facility] [address] [facility] [address] [place], [place] [id number] 11/07/2024 Adelfo Shepherd Depression with anxi ety F41.8 ; Adjustment disorder with mixed anxiety and depressed mood F43.23 ; Irritable bowel syndrome with constipation K58.1 and Morbid obesity E66.01 [facility] [address] [facility] [address] [place], [place] [id number] 12/23/2024 Adelfo Shepherd [facility] [address] [place], [place] [id number] 09/26/2024 Adelfo Shepherd [facility] [address] [facility] [address] [place], [place] [id number] 09/27/2024 Adelfo Shepherd [facility] [address] [place], [place] [id number] 09/29/2024 Adelfo Shepherd [facility] [address] [place], [place] [id number] 11/10/2024 Adelfo Shepherd [facility] [address] [facility] [address] [place], [place] [id number] 11/12/2024 Adelfo Shepherd Assessments Encounter Date Diagnosis (ICD Code) Assessment Notes Treatment Notes Treatment Clinical Notes Section Notes 07/07/2024 Depression with anxiety (ICD-10 - F41.8) 07/07/2024 Irritable bowel syndrome with constipation (ICD-10 - K58.1) 11/07/2024 Depression with anxiety (ICD-10 - F41.8) 11/07/2024 Adjustment disorder with mixed anxiety and depressed mood (ICD-10 - F43.23) 11/07/2024 Irritable bowel syndrome with constipation (ICD-10 - K58.1) 07/07/2024 Morbid obesity (ICD-10 - E66.01) 11/07/2024 Morbid obesity (ICD-10 - E66.01) 07/07/2024 Hx of colon cancer, stage I (ICD-10 - Z85.038) 07/07/2024 History of kidney cancer (ICD-10 - Z85.528) Plan Of Treatment Next Appt Details Provider Name:Adelfo márquez, 12/24/2024 04:00:00 PM, [address] [facility] [address] [facility], [address], [place], [place], [id number], Insurance Providers Payer Name Payer Address Payer Phone Subscriber Number Group Number Insured Name Patient Relationship to Insured Coverage Start Date Coverage End Date [facility] [address] [place] [address] [id number] John Paulino Self - patient is the insured Medical (General) History Medical History History ICD Code Kidney Cancer, small/clear cell carcinom a, stage 1, Dx Feb 2023 colon cancer - Neuroendocrine cancer, st age 1, Dx: Dec 2023 Depression Anxiety disorder Irritable Bowel Syndrome Surgical History Surgery Date(Month/Year) Nephrectomy 04/19/2023 Colonoscopy 12/2023
--- OUTSIDE RECORDS SUMMARY | 2024-12-23 22:39 | XMS_ITS | Clinical Summary ---
Author Organization [facility] Address [address] [place] [address] Care Team Providers Care Cell Tender Name Role Phone Miguelangel Sullivan MD Primary Care Provider [phone] Allergies No known active allergies Medications * This document contains information received from the source organization and may not represent a complete record from that organization. linaclotide (Linzess) 145 MCG capsule capsuleIndications :Constipation, unspecified constipation type Take 1 capsule by mouth Every Morning Before Breakfast. 30 capsule 1 1 Active sertraline (Zoloft) 50 MG tabletIndications: Reactive depression,Anxiety Take 1 tablet by mouth Daily. 30 tablet 2 Active folic acid (FOLVITE) 1 MG tabletIndications: Folate deficiency Take 1 tablet by mouth Daily. 90 tablet 2 Active vitamin B-12 (CYANOCOBALAMIN) 1000 MCG tabletIndications: Fatigue, unspecified type Take 1 tablet by mouth Daily. 90 tablet 2 Active ferrous sulfate 325 (65 FE) MG tabletIndications: Iron deficiency Take 1 tablet by mouth Daily With Breakfast. 90 tablet 2 Active Cholecalciferol (Vitamin D3) 50 MCG (2000 UT) tabletIndications: Vitamin D insufficiency Take 1 tablet by mouth Daily. 90 tablet 2 Active Active Problems Problem Noted Date Diagnosed Date Chronic idiopathic constipation 04/21/2021 External hemorrhoids 04/21/2021 Immunizations Immunization Administration Dates Next Due COVID-19 (MODERNA) 1st,2nd,3rd Dose Monovalent 0 07/29/2020,06/30/2020 DTaP, Unspecified 01/19/1999 Hep B, Adolescent or Pediatric 10/17/1999 MMR 10/17/1999,01/19/1999 OPV 01/19/1999 Family History Medical History Relation Name Comments COPD Father Hyperlipidemia Father Hypertension Father Lung cancer Father Colon cancer Maternal Grandfather Depression Maternal Grandmother Depression Mother Lymphoma Mother Heart disease Other father, grandm other or brother developed heart disease before the age of 65 Alcohol abuse Paternal Grandmother Relation Name Status Comments Father Maternal Grandfather Maternal Grandmother Mother Other Paternal Grandmother Social History Tobacco Use Types Packs/Day Years Used Date Smoking Tobacco: Never Smokeless Tobacco: Never Alcohol Use Standard Drinks/Week Comments Not Currently 0 (1 standard drink = 0.6 oz pure alcohol) former; drank alcohol in the past, 7 or less drinks per week PHQ-2 Answer Date Recorded Retired PHQ-9: Brief Depression Severity Measure Score 24 08/09/2021 Abuse Screen Answer Date Recorded Unsafe at Home or Work/School Not on file Feels Threatened by Someone? Not on file 03/2023 Does Anyone Keep You from Co ntacting Others or Doint Things Outside the Home? Not on file 01/18/2023 Physical Sign of Abuse Present Not on file 1 Housing Stability Answer Date Recorded Current Living Arrangements Not on file 01/07 Potentially Unsafe Housing Conditions Not on narendra e 01/18/2023 Family and Community Support Answer Gennaro e Recorded Help with Day-to-Day Activities Not on file 01/18/2023 Lonely or Isolated Not on file 01/18/2023 Employment Answer Date Recorded Do you want help finding or keeping work or a olya b? Not on file 01/18/2023 Disabilities Answer Date Recorded Concentrating, Remembering, or Making Decisions Difficulty Not on file 01/18/2023 Doing Errands Independently Difficulty Not on fi le 01/18/2023 Education Answer Date Recorded Help with school or training? Not on file Preferred Language Not on file 01/18/2023 Sex and Gender Information Value Date Recorded Sex Assigned at Not on file Legal Sex Male 3:54 PM EDT Gender Identity Not on file Sexual Orientation Not on file Last Filed Vital Signs Vital Sign Reading Time Taken Comments Blood Pressure 130/88 08/09/2021 12:39 PM EDT Pulse 103 08/09/2021 12:39 PM EDT Temperature 36.8 C (98.3 F) 08/09/2021 12:39 PM EDT Respiratory Rate - - Oxygen Saturation 98% 08/09/2021 12:39 PM EDT Inhaled Oxygen Concentration - - Weight 143 kg (314 lb 4.8 oz) 08/09/2021 12:39 P M EDT Height 172.7 cm (5' 8 ) 04/21/2021 8:32 AM EST Body Mass Index 47.79 04/21/2021 8:32 AM EST Plan of Treatment Health Maintenance Due Date Last Done Comments TDAP/TD VACCINES (1 - Tdap) 2012 ANNUAL PHYSICAL 11/15/2020 COVID-19 Vaccine (2024-2 6 season) 2024 07/29/2020, 06/30/2020 INFLUENZA VACCINE 01/07/2025 HEPATITIS C SCREENING Completed 08/09/2021 Pneumococcal Vaccine 0-49 Aged Out No longer eligible based on patient's age to complete this topic Procedures Procedure Name Priority Date/Time Associated Diagnosis Comments HEPATITIS C ANTIBODY Routine 08/09/2021 1:29 PM EDT Need for hepatitis C screening test from Last 3 Months or Most Recently Relevant to Health Maintenance Results * Hepatitis C Antibody (08/09/2021 1:29 PM EDT) Hepatitis C Ab Non-Reacti ve Non-Reacti ve 08/09/2021 11:37 PM EDT [facility] Blood Venipuncture / Unknown 08/09/2021 1:29 PM EDT 08/09/2021 1:29 PM EDT Narrative [facility] - 08/09/2021 11:37 PM EDT Results may be falsely decreased if patient taking Biotin. us Susanne Escamilla APRN LAB BLOOD ORDERABLES Fi nal Result [facility]
[address] [place] [address], from Last 3 Months or Most Recently Relevant to Health Maintenance Insurance [facility] [employer] [facility] PPO Care Teams Cell Tender Relationship Specialty Start Date End Date Miguelangel Sullivan MD [address] [place], [place] [address] PCP - General Family Medicine 11/15/20
[2024-12-23 22:40] VITALS: BP 109/79; PULSE 99; RESP 19; TEMP 36.8; O2SAT 96; BMI 42.5
[2024-12-23] MEDS: ONDANSETRON 4MG/2ML VIAL 4 MG IV (22:48)
[2024-12-23 22:53] LABS: Hematocrit 47.8 % (42.0-52.0); Hemoglobin 16.4 g/dL (14.1-18.0); Immature Granulocytes % 0.3 %; Mean Corpuscular HGB Conc 34.3 g/dL (31.8-35.4); Mean Corpuscular Hemoglobin 29.4 pg (27.0-31.2); Mean Corpuscular Volume 85.7 fl (80-94); Nucleated Red Blood Cells % 0 %; Platelet Count 281 K/mm3 (142-424); Red Blood Count 5.58 M/mm3 (4.60-6.20); Red Cell Distribution Width-SD 40.0 fL; White Blood Count 11.6 K/mm3 (4.8-10.8)
[2024-12-23] MEDS: LACTATED RINGERS 1000ML 1,000 ML 999 ML IV (22:55)
[2024-12-23 22:59] LABS: Albumin Level 4.7 g/dl (3.5-5.0); Chloride 104 mmol/L (98-107)
[2024-12-23 23:00] LABS: Potassium 3.9 mmoL/L (3.5-5.1); Sodium 138 mmol/L (136-145)
[2024-12-23 23:02] LABS: Alanine Aminotransferase 50 U/L (12-78); Alkaline Phosphatase 66 U/L (38-126); Anion Gap 13.9 mEq/L (5-15); Aspartate Amino Transferase 42 U/L (17-59); Bilirubin,Total 1.3 mg/dl (0.2-1.3); Blood Urea Nitrogen 19 mg/dl (9-20); Carbon Dioxide 24 mmol/L (22.0-30.0); Creatinine Clearance Estimated 94 mL/min (50-200); Creatinine,Serum 1.10 mg/dl (0.66-1.25); Estimated Glomerular Filt Rate 78 ml/min (>60); GFR (African American) 94 ML/MIN (>60)
[2024-12-23 23:03] LABS: Albumin/Globulin Ratio 1.4 (1.1-1.8); Calcium 9.3 mg/dl (8.4-10.2); Globulin 3.4 g/dL (1.3-3.2); Glucose 95 mg/dl (74-100); Lipase 134 U/L (23-300); Total Protein,Serum 8.1 g/dl (6.3-8.2)
[2024-12-23 23:56] LABS: Hepatitis C Ab Qual. W/ RFX NEGATIVE (Negative)
[2024-12-24 01:02] VITALS: BP 108/66; PULSE 78; RESP 18; TEMP 36.8; O2SAT 96
== END 2024-12-24 01:03 | disposition home or self-care (01) ==
PROVIDERS: Emergency Provider Student in an Organized Health Care Education/Training Program
DX: R11.2 Nausea with vomiting, unspecified (principal); Z85.528 Personal history of other malignant neoplasm of kidney; Z90.5 Acquired absence of kidney
CPT/HCPCS: 80053; 83690; 85025; 86803; 87389; 96361; 96374; 99284; J2405; J7120